=== PATIENT | male | born 1995 | race Hispanic/Latino ===

== ENCOUNTER 2021-12-07 07:05 | Day surgery (SDC) | payer OTHER ==
[2021-12-03 12:05] VITALS: BP 127/82
[2021-12-03 12:43] LABS: BASOPHILS % (AUTO) 0.5 % (0.0-5.0); EOSINOPHILS % (AUTO) 2.9 % (0.0-8.0); HEMATOCRIT 42.8 % (42-54); MEAN CORPUSCULAR HEMOGLOBIN 30.3 pg (27.0-33.0); MEAN CORPUSCULAR HGB CONC 34.1 g/dL (32.0-36.0); MEAN CORPUSCULAR VOLUME 88.8 fL (79-99); MONOCYTES % (AUTO) 4.2 % (3.0-13.0); NEUTROPHILS % (AUTO) 59.2 % (40.0-77.0); PLATELET COUNT (AUTO) 308 K/uL (130-400); RED BLOOD CELL COUNT(AUTO) 4.82 MIL/uL (4.50-6.20)
[2021-12-03 12:59] LABS: CREATININE 1.1 mg/dL (0.5-1.5); POTASSIUM 4.1 mmol/L (3.5-5.1)
[2021-12-07] VITALS (15 sets, daily range): BP systolic 106–122; BP diastolic 57–82
[~2021-12-07 07:05] MED LIST: ACET-2743 PO; CELE200 PO
[2021-12-07] MEDS ORDERED: LACTATED RINGERS 1000ML 1,000 ML IV ONE (07:47)
[2021-12-07] MEDS: CEFAZOLIN SODIUM 1 GM VIAL ONE ×2 (08:27→09:59)
[2021-12-07] MEDS ORDERED: MIDAZOLAM HCL 1 MG/ML 2ML VIAL ONE (09:49)
[2021-12-07] MEDS ORDERED: SUCCINYLCHOLINE CHLORIDE 20 MG/ML 10 ML VIAL ONE (09:49)
[2021-12-07] MEDS ORDERED: PROPOFOL 10 MG/ML 20ML VIAL IV ONE ×2 (09:49→12:28)
[2021-12-07] MEDS ORDERED: FENTANYL CITRATE PF 50 MCG/1 ML 2ML VIAL ONE (09:49)
[2021-12-07] MEDS ORDERED: ROCURONIUM 10MG/1ML SYR 10 MG/ML ML ONE ×2 (09:49→11:11)
[2021-12-07] MEDS ORDERED: LIDOCAINE PF 100MG/5ML (2%) SYRINGE 5ML ONE (09:49)
[2021-12-07] MEDS ORDERED: ROPIVACAINE 0.5% 5MG/ML 30ML IJ ONE (09:59)
[2021-12-07] MEDS ORDERED: EPHEDRINE SULFATE 50 MG/ML AMPULE ONE (10:05)
[2021-12-07] MEDS ORDERED: DEXAMETHASONE SOD PHOSPHATE 10MG/ML 1ML VIAL ONE (10:20)
[2021-12-07] MEDS ORDERED: ONDANSETRON 4MG INJ ONE (10:20)
[2021-12-07] MEDS ORDERED: CEFAZOLIN SODIUM 1 GM VIAL ONE ×2 (10:34→10:36)
[2021-12-07] MEDS ORDERED: MEPERIDINE-PF 25 MG/ML SYG ONE ×2 (13:06→13:16)
== END 2021-12-07 14:30 | disposition home or self-care (01) ==
LOC: DAH 07:05
PROVIDERS: ATTEND Orthopaedic Surgery
DX: S83.511A Sprain of anterior cruciate ligament of right knee, initial encounter (principal); Z20.822 Contact with and (suspected) exposure to COVID-19; M94.261 Chondromalacia, right knee; F17.200 Nicotine dependence, unspecified, uncomplicated; E66.9 Obesity, unspecified; Z72.89 Other problems related to lifestyle; Z68.32 Body mass index [BMI] 32.0-32.9, adult; Z86.73 Personal history of transient ischemic attack (TIA), and cerebral infarction without residual deficits; X58.XXXA Exposure to other specified factors, initial encounter; Y93.89 Activity, other specified; Y92.89 Other specified places as the place of occurrence of the external cause
CPT/HCPCS: 29888; 36415; 64447; 76942; 80048; 85025; 87635; A4215; A4221; A4222; A4223; A4649 ×5; A4663; A6223; A6260; C1713 ×4; C1734; C1776; C9803; J0330; J0690 ×3; J1100; J2001; J2175 ×2; J2250; J2405; J2704 ×2; J2795; J3010; J3490; J7120